=== PATIENT | female | born 1925 | race Two or more races ===

== ENCOUNTER → 2017-03-20 | Outpatient (CLI) | payer MEDICARE, OTHER ==
[~2017-03-20] VITALS: Ht 147.3 cm; Wt 73.0 kg
[~2017-03-20] MED LIST: ALEN70TA48 PO; CALC-895 PO; DONE10TA8 PO; FLUT16H NASAL; GABA-531 PO; INFLUENZA VIRUS VACCINE QVS 2017-18 (3YR+)/PF 60 MCG/0.5 ML SYRINGE IM ONE; LORA10TA7 PO; OMEP20 PO; SUCR1TAB PO; TRAM50TA4 PO
[2017-03-20 11:01] VITALS: BP 122/61
== END | disposition home or self-care (01) ==
LOC: SRCNTR 10:47
PROVIDERS: ATTEND Internal Medicine Cardiovascular Disease
DX: I10 Essential (primary) hypertension (principal); E78.5 Hyperlipidemia, unspecified; F03.90 Unspecified dementia, unspecified severity, without behavioral disturbance, psychotic disturbance, mood disturbance, and anxiety; K58.9 Irritable bowel syndrome, unspecified; M19.90 Unspecified osteoarthritis, unspecified site; M54.5 Low back pain
CPT/HCPCS: 90471; G0463